=== PATIENT | female | born 1990 | race Caucasian/White ===

== ENCOUNTER 2022-08-03 07:35 | Day surgery (SDC) | payer MEDICAID ==
[~2022-08-03] VITALS: Ht 177.8 cm; Wt 150.0 kg
[2022-08-03 07:45] VITALS: BP 138/91
[2022-08-03] MEDS ORDERED: FENTANYL CITRATE/PF 50 MCG/1 ML VIAL ONE ×2 (07:47→07:48)
[2022-08-03] MEDS ORDERED: MIDAZolam 1 MG/ML 5ML VIAL ONE (07:48)
[2022-08-03] MEDS ORDERED: diphenhydrAMINE 50 mg/ml inj ONE (07:48)
[2022-08-03] MEDS ORDERED: LIDOcaine Viscous 15ml cup ONE (07:48)
[2022-08-03] MEDS ORDERED: OMAL150S (07:52)
[2022-08-03] MEDS ORDERED: MONT-40 PO (07:52)
[2022-08-03] MEDS ORDERED: PARO10TA4 PO (07:52)
[2022-08-03] MEDS ORDERED: PREG50CA64 (07:52)
[2022-08-03] MEDS ORDERED: CETI10TA14 PO (07:54)
[2022-08-03] MEDS ORDERED: ALBUTEROL (07:54)
[2022-08-03] MEDS ORDERED: OMEP20CA16 PO (07:54)
[2022-08-03] MEDS ORDERED: BUDE10.22 (07:54)
[2022-08-03 08:46] VITALS: BP 125/80
[2022-08-03 08:53] VITALS: BP 120/71
[2022-08-03 08:58] VITALS: BP 120/76
[2022-08-03 09:08] VITALS: BP 119/56
== END 2022-08-03 09:30 | disposition home or self-care (01) ==
LOC: GI LAB 07:35
PROVIDERS: ATTEND Internal Medicine Gastroenterology
DX: K29.50 Unspecified chronic gastritis without bleeding (principal); Z98.84 Bariatric surgery status
CPT/HCPCS: 43239; 99152; J1200; J2250; J3010; J7030; Z7512; 99153; A4620